=== PATIENT | male | born 1940 | race Caucasian/White ===

== ENCOUNTER 2023-10-18 09:43 | Outpatient (CLI) | payer MEDICARE | END 2023-10-18 09:44 | disposition home or self-care (01) | LOC: CSHWCC 09:43 | PROVIDERS: ATTEND Preventive Medicine Undersea and Hyperbaric Medicine | DX: L00-L99 Diseases of the skin and subcutaneous tissue (principal); Z93.6 Other artificial openings of urinary tract status | CPT/HCPCS: 99213; G0463 ==